=== PATIENT | female | born 1945 ===

== ENCOUNTER 2024-12-13 11:00 | Inpatient (IN) | payer OTHER ==
[~2024-12-13] VITALS: Ht 144.8 cm; Wt 36.3 kg
[2024-12-13] MEDS ORDERED: PEPCID AC20 MG PO (14:18)
[2024-12-13] MEDS ORDERED: LOPRESSOR25 MG PO (14:18)
[2024-12-13] MEDS ORDERED: PLAVIX75 MG PO (14:18)
[2024-12-13] MEDS ORDERED: AVAPRO150 MG PO (14:19)
[2024-12-13] MEDS ORDERED: ALTOPREV40 MG PO (14:19)
[2024-12-13] MEDS ORDERED: EVISTA60 MG PO (14:19)
[2024-12-13] MEDS ORDERED: HORIZANT300 MG PO (14:20)
[2024-12-13 14:21] VITALS: BP 146/81
[2024-12-19] MEDS ORDERED: LIDOCAINE HCL 1%/EPINEPHRINE 20ML VIAL IJ ONE (14:00)
[2024-12-19] MEDS ORDERED: METRONIDAZOLE/SODIUM CHLORIDE 500 MG/100 ML PIGGYBACK IV ONE (14:00)
[2024-12-19] MEDS ORDERED: BUPIVACAINE HCL 30 ML VIAL IJ ONE (14:00)
[2024-12-19] MEDS ORDERED: POVIDONE-IODINE 118 ML BOTT TOP ONE (14:00)
[2024-12-19] MEDS ORDERED: levoFLOXacin IN DEXTROSE 5 % 5 MG/ML PIGGYBAG IV ONE (14:00)
[2024-12-19] MEDS ORDERED: DEXTROSE 50 % IN WATER 0.5 G/ML VIAL IV PRN (14:45)
[2024-12-19] MEDS ORDERED: OxyCODONE HCL 5 MG TABLET (ROXICODONE) PO PRN (14:45)
[2024-12-19] MEDS ORDERED: 0.9 % SODIUM CHLORIDE 1,000 ML IV SCH (14:45)
[2024-12-19] MEDS ORDERED: MORPHINE SULFATE 4 MG/ML CARTRIDGE IV PRN (14:45)
[2024-12-19] MEDS ORDERED: ONDANSETRON HCL 2 MG/ML VIAL IV PRN (14:45)
[2024-12-19 16:26] LABS: BASO % 0.4 % (0.1-1.2); EOS # 0.05 (0.04-0.54); EOS % 0.7 % (0.7-7.0); LYMPH # 1.72 (1.18-3.74); LYMPH % 25.3 % (19.3-53.1); MEAN PLATELET VOLUME 10.10 fl (9.4-12.4); MONO # 0.55 (0.24-0.82); MONO % 8.1 % (4.7-12.5); NEUT # 4.42 (1.56-6.13); NEUT % 65.1 % (34.0-71.1); RED CELL DISTRIBUTION WIDTH 13.4 % (11.6-14.4)
[2024-12-19] MEDS ORDERED: GABAPENTIN 300 MG CAPSULE PO SCH (17:00)
[2024-12-19] MEDS ORDERED: CELECOXIB 200 MG CAPSULE PO SCH (17:00)
[2024-12-19] MEDS ORDERED: HYOSCYAMINE SULFATE 0.125 MG TAB.SUBL SL SCH (17:00)
[2024-12-19] MEDS ORDERED: METOCLOPRAMIDE HCL 5 MG/ML VIAL IV SCH (17:00)
[2024-12-19] MEDS ORDERED: POLYETHYLENE GLYCOL 3350 17 GM BLIST.PACK PO SCH (17:00)
[2024-12-19] MEDS ORDERED: SIMETHICONE 125 MG CAPSULE PO SCH (17:00)
[2024-12-19] MEDS ORDERED: ACETAMINOPHEN 500 MG GEL..CAP PO SCH (20:00)
[2024-12-19] MEDS ORDERED: FAMOTIDINE/PF 20 MG/2 ML VIAL IV PUSH SCH (21:00)
[2024-12-20 04:29] VITALS: BP 93/51; O2SAT 98
[2024-12-20 06:47] LABS: BASO % 0.2 % (0.1-1.2); EOS # 0.01 (0.04-0.54); EOS % 0.1 % (0.7-7.0); LYMPH # 1.39 (1.18-3.74); LYMPH % 13.9 % (19.3-53.1); MEAN PLATELET VOLUME 10.50 fl (9.4-12.4); MONO # 0.83 (0.24-0.82); MONO % 8.3 % (4.7-12.5); NEUT # 7.74 (1.56-6.13); NEUT % 77.2 % (34.0-71.1); RED CELL DISTRIBUTION WIDTH 13.4 % (11.6-14.4)
[2024-12-20 08:00] VITALS: BP 130/68; O2SAT 97
[2024-12-20] MEDS ORDERED: LACTULOSE 20 G/30 ML BLIST.PACK PO SCH (09:00)
[2024-12-20] MEDS ORDERED: LACTOBACILLUS ACIDOPHILUS 1 CAP CAP PO SCH (09:00)
[2024-12-20 16:28] VITALS: BP 157/79; O2SAT 99
[2024-12-20] MEDS ORDERED: ENOXAPARIN SODIUM 40 MG/0.4 ML SYRINGE SUBCUTANEO SCH (17:00)
[2024-12-21] MEDS ORDERED: ENOXAPARIN SODIUM 40 MG/0.4 ML SYRINGE SUBCUTANEO SCH (09:00)
== END 2024-12-20 19:33 | disposition home or self-care (01) | DRG 395 ==
LOC: O/R 12-19 07:15 → SURG 12-19 07:15 → SURH 12-19 11:00 → SURG 12-19 22:32
PROVIDERS: ADMIT Colon & Rectal Surgery; ATTEND Colon & Rectal Surgery
PROC: 0DBP8ZZ Excision of Rectum, Via Natural or Artificial Opening Endoscopic (ICD-10-PCS; principal; 2024-12-19 20:00)
DX: D12.8 Benign neoplasm of rectum (principal)
CPT/HCPCS: 0184T; 45123